=== PATIENT | male | born 1970 | race Caucasian/White ===

== ENCOUNTER 2017-08-31 07:28 | Day surgery (SDC) | payer BC ==
[2017-08-28 16:36] VITALS: BMI 31.2
[2017-08-31] MEDS ORDERED: PROPOFOL 20 ML ONE ×4 (07:40→09:32)
[2017-08-31 09:50] VITALS: TEMP 98.2
[2017-08-31 10:14] VITALS: BP 120/68; PULSE 82
--- NOTE | 2017-09-01 14:27 | PATH ---
Surgical Pathology Report Patient Name: STEVE WYATT [facility]. Rec. #: [id number] /Age/Gender: 1970 (Age: 47) / M Account: [id number] Location: [facility]-ENDOSCOPY Taken: 08/31/2017 Received: 08/31/2017 Reported: 09/01/2017 Physicians: Mahamed Harding M.D. Specimen(s) Received A: POLYP OF PROXIMAL RIGHT COLON B: POLYP LEFT COLON C: POLYP DISTAL LEFT COLON Clinical History History of polyps Postoperative diagnosis: Colonic polyps Final Diagnosis A. PROXIMAL RIGHT COLON, POLYP, POLYPECTOMY: TUBULAR ADENOMA. B. LEFT COLON, POLYP, POLYPECTOMY: HYPERPLASTIC POLYP. C. DISTAL LEFT COLON, POLYP, POLYPECTOMY: TUBULAR ADENOMA. Electronically Signed Priyanka Acuna M.D. Gross Description A. Received in formalin, labeled "polyp proximal right colon" is a jones, irregular portion of soft tissue measuring 0.3 cm. in greatest dimension. The specimen is submitted in toto in one cassette. B. Received in formalin, labeled "polyp left colon" is a jones, irregular portion of soft tissue measuring 0.3 cm. in greatest dimension. The specimen is submitted in toto in one cassette. C. Received in formalin, labeled "polyp distal left colon" is a jones, irregular portion of soft tissue measuring 0.3 cm. in greatest dimension. The specimen is submitted in toto in one cassette. 08/31/2017 saudi08/31/2017
== END 2017-08-31 10:16 | disposition home or self-care (01) ==
LOC: FASU-ENDO 07:28
PROVIDERS: ATTEND Internal Medicine Gastroenterology
PROC: 0DBM8ZX Excision of Descending Colon, Via Natural or Artificial Opening Endoscopic, Diagnostic (ICD-10-PCS; principal; 2017-08-31 09:06)
PROC: 0DBK8ZX Excision of Ascending Colon, Via Natural or Artificial Opening Endoscopic, Diagnostic (ICD-10-PCS; 2017-08-31 09:06)
DX: Z86.010 Personal history of colon polyps (principal); D12.2 Benign neoplasm of ascending colon; K62.1 Rectal polyp
CPT/HCPCS: 82962; 88305-TC